=== PATIENT | female | born 1995 | race Caucasian/White ===

== ENCOUNTER 2016-06-10 14:03 | Emergency (ER) | payer OTHER ==
[2016-06-10 14:30] VITALS: TEMP 98.7; O2SAT 96
--- NOTE | 2016-06-10 16:13 | ED.PDOC ---
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 Additionally, she is having swelling in her feet. She did walk around quite a bit yesterday. She has had a vaginal discharge and a little cramping while she was walking yesterday. She denies any Nausea/vomiting. No dysuria. She has been taking her Synthroid with her vitamins and is worried that it is causing problems. Timing/Duration: 4-6 hours Severity: mild Improving Factors: nothing Worsening Factors: nothing Associated Symptoms: denies symptoms Allergies/Adverse Reactions: Allergies NO KNOWN ALLERGY Allergy (Verified 06/10/16 14:30) Home Medications: Ambulatory Orders Vit W/ Ferrous Fumara [] 1 tab PO DAILY 06/10/16 Thyroid 1 each PO DAILY 06/10/16 Review of Systems - Review of Systems Constitutional: States: no symptoms reported EENTM: States: no symptoms reported Respiratory: States: no symptoms reported Cardiology: States: no symptoms reported Gastrointestinal/Abdominal: States: no symptoms reported Genitourinary: States: discharge Musculoskeletal: States: no symptoms reported Skin: States: no symptoms reported Neurological: States: no symptoms reported Endocrine: States: no symptoms reported Hematologic/Lymphatic: States: no symptoms reported All other Systems: Reviewed and Negative Past Medical History (General) - Patient Medical History Hx Stroke: No Hx Congestive Heart Failure: No Hx Thyroid Disease: Yes Hx Diabetes: No Hx Cancer: No Hx Hepatitis C: No Hx MRSA: No Surgical History: no surgical history - Vaccination History Hx Tetanus, Diphtheria Vaccination: No Hx Influenza Vaccination: No Hx Pneumococcal Vaccination: No - Social History Hx Tobacco Use: No Hx Alcohol Use: No Hx Substance Use: No Hx Substance Use Treatment: No Hx Depression: No - Activities of Daily Living Hospice Agency (if applicable):: None - Female History Patient is a Female of Child Bearing Age (10 -59 yrs old): Yes Hx Last Menstrual Period: 02/03/16 Patient : Yes Family Medical History - Family History Mother Family History: No Known Living Status: Still Living Physical Exam - Physical Exam General Appearance: Alert, Comfortable, No apparent distress Eye Exam: bilateral normal Ears, Nose, Throat: hearing grossly normal, normal ENT inspection Neck: supple Respiratory: lungs clear, normal breath sounds, no respiratory distress Cardiovascular/Chest: regular rate, rhythm, no edema, no gallop, no murmur Gastrointestinal/Abdominal: normal bowel sounds, non tender, soft, no organomegaly Extremity: normal range of motion, non-tender, normal inspection, no pedal edema , no calf tenderness Neurologic: alert, normal mood/affect, oriented x 3 Skin Exam: normal color, warm/dry Comments: Gravid, FHT 150 bpm Progress - Progress Progress: 06/10/16 16:18 Patient declined pelvic exam as she is going to see her OB on 06/13/2016. - Results/Orders Results/Orders: 06/10/16 14:05 Temperature 98.7 F Pulse Rate [ 87 pulse ox] Respiratory 20 Rate Blood Pressure 116/71 [Left Arm] O2 Sat by Pulse 96 Oximetry Laboratory Results WBC 10.9 K/mm3 (4.8-10.8) H 06/10/16 15:35 RBC 3.73 M/mm3 (4.20-5.40) L 06/10/16 15:35 Hgb 11.7 gm/dL (12.0-16.0) L 06/10/16 15:35 Hct 33.1 % (36.0-47.0) L 06/10/16 15:35 MCV 88.9 fl (81.0-99.0) 06/10/16 15:35 MCH 31.3 pg (27.0-31.0) H 06/10/16 15:35 MCHC 35.3 g/dL (33.0-37.0) 06/10/16 15:35 RDW 12.9 % (11.5-14.5) 06/10/16 15:35 Plt Count 295 K/mm3 (130-400) 06/10/16 15:35 MPV 7.2 fl (7.40-10.4) L 06/10/16 15:35 Absolute Neuts (auto) 7.70 K/uL (1.8-6.8) H 06/10/16 15:35 Absolute Lymphs (auto) 1.50 K/uL (1.0-3.4) 06/10/16 15:35 Absolute Monos (auto) 1.20 K/uL (0.2-0.8) H 06/10/16 15:35 Absolute Eos (auto) 0.40 K/uL (0.0-0.4) 06/10/16 15:35 Absolute Basos (auto) 0.10 K/uL (0.0-0.1) 06/10/16 15:35 Neutrophils % 70.8 % (42.0-78.0) 06/10/16 15:35 Lymphocytes % 13.7 % (20.0-50.0) L 06/10/16 15:35 Monocytes % 11.0 % (2.0-9.0) H 06/10/16 15:35 Eosinophils % 4.0 % (1.0-5.0) 06/10/16 15:35 Basophils % 0.5 % (0.0-2.0) 06/10/16 15:35 Sodium 137 mmol/L (135-145) 06/10/16 15:35 Potassium 3.7 mmol/L (3.6-5.0) 06/10/16 15:35 Chloride 109 mmol/L (101-111) 06/10/16 15:35 Carbon Dioxide 23 mmol/L (21-31) 06/10/16 15:35 Anion Gap 8.7 (12-18) L 06/10/16 15:35 BUN 12 mg/dL (7-18) 06/10/16 15:35 Creatinine 0.45 mg/dL (0.6-1.3) L 06/10/16 15:35 BUN/Creatinine Ratio 26.7 (10-20) H 06/10/16 15:35 Random Glucose 80 mg/dL (70-105) 06/10/16 15:35 Serum Osmolality 272.6 mOsm/L (275-295) L 06/10/16 15:35 Calcium 9.0 mg/dL (8.4-10.2) 06/10/16 15:35 Total Bilirubin < 0.2 mg/dL (0.2-1.0) L 06/10/16 15:35 AST 24 IU/L (10-42) 06/10/16 15:35 ALT 27 IU/L (10-60) 06/10/16 15:35 Alkaline Phosphatase 57 IU/L (42-121) 06/10/16 15:35 Serum Total Protein 6.5 gm/dL (6.4-8.2) 06/10/16 15:35 Albumin 3.1 g/dl (3.2-5.5) L 06/10/16 15:35 Globulin 3.4 gm/dL (2.3-3.5) 06/10/16 15:35 Albumin/Globulin Ratio 0.9 (1.1-1.9) L 06/10/16 15:35 Urine Color Yellow (Yellow) 06/10/16 14:47 Urine Appearance Cloudy (Clear) 06/10/16 14:47 Urine pH 7.0 (4.5-7.8) 06/10/16 14:47 Ur Specific [place] 1.025 (1.005-1.030) 06/10/16 14:47 Urine Protein Negative mg/dL 06/10/16 14:47 Urine Glucose (UA) Negative mg/dL (Negative) 06/10/16 14:47 Urine Ketones Negative mg/dL (NEGATIVE) 06/10/16 14:47 Urine Blood Negative (Negative) 06/10/16 14:47 Urine Nitrite Negative 06/10/16 14:47 Urine Bilirubin Negative (NEGATIVE) 06/10/16 14:47 Urine Urobilinogen 0.2 mg/dL (0.2-1.0) 06/10/16 14:47 Ur Leukocyte Esterase Negative (Negative) 06/10/16 14:47 Urine RBC 0 /hpf 06/10/16 14:47 Urine WBC 0 /hpf 06/10/16 14:47 Ur Epithelial Cells 5-10 /hpf 06/10/16 14:47 Amorphous Sediment 3+ 06/10/16 14:47 Urine Bacteria 0 06/10/16 14:47 Departure - Departure Clinical Impression: , Worried well Time of Disposition: 16:19 Disposition: Discharge to Home or Self Care Condition: Excellent Departure Forms: ED Discharge - Pt. Copy, Patient Portal Self Enrollment Diet: resume usual diet Home Medications: Ambulatory Orders Vit W/ Ferrous Fumara [] 1 tab PO DAILY 06/10/16 Thyroid 1 each PO DAILY 06/10/16
[2016-06-10 16:45] VITALS: BP 119/61
== END 2016-06-10 16:34 | disposition home or self-care (01) ==
LOC: ER 14:03
DX: O99.282 Endocrine, nutritional and metabolic diseases complicating pregnancy, second trimester (principal); E07.9 Disorder of thyroid, unspecified; R60.0 Localized edema; Z3A.22 22 weeks gestation of pregnancy; Z79.899 Other long term (current) drug therapy

== ENCOUNTER 2017-01-23 12:11 | Emergency (ER) | payer SELFPAY | END 2017-01-23 12:30 | disposition left against medical advice (07) | LOC: ER 12:11 | DX: Z53.21 Procedure and treatment not carried out due to patient leaving prior to being seen by health care provider (principal) ==

== ENCOUNTER 2017-08-01 13:20 | Emergency (ER) | payer SELFPAY ==
[2017-08-01 13:32] VITALS: BP 112/78; TEMP 98; O2SAT 95
[2017-08-01] MEDS ORDERED: FLUCONAZOLE 100 MG TAB PO ONE (14:10)
--- NOTE | 2017-08-01 14:32 | ED.PDOC ---
History of Present Illness - General Chief Complaint: Problem Stated Complaint: vaginal burning,itching Time Seen by Provider: 08/01/17 13:23 Source: patient Exam Limitations: no limitations - History of Present Illness Initial Comments: The patient's 19-year-old female presenting to the emergency room secondary to mild dysuria and vaginal itching present for the last 3 days. No history of STDs or frequent yeast infections. No real pelvic pain. No fever. No significant vaginal discharge according to her. Severity: mild Improving Factors: nothing Worsening Factors: nothing Associated Symptoms: denies symptoms Allergies/Adverse Reactions: Allergies NO KNOWN ALLERGY Allergy (Verified 06/10/16 14:30) Home Medications: Ambulatory Orders Fluconazole 100 mg PO DAILY #2 tab 08/01/17 Trazodone HCl 25 mg PO BEDTIME 08/01/17 Review of Systems - Review of Systems Constitutional: States: no symptoms reported EENTM: States: no symptoms reported Respiratory: States: no symptoms reported Cardiology: States: no symptoms reported Gastrointestinal/Abdominal: States: no symptoms reported Genitourinary: States: see HPI Musculoskeletal: States: no symptoms reported Skin: States: no symptoms reported Neurological: States: no symptoms reported Endocrine: States: no symptoms reported All other Systems: No Change from Baseline Past Medical History (General) - Patient Medical History Hx Stroke: No Hx Congestive Heart Failure: No Hx Thyroid Disease: Yes Hx Diabetes: No Hx Cancer: No Hx Hepatitis C: No Hx MRSA: No Surgical History: no surgical history - Vaccination History Hx Tetanus, Diphtheria Vaccination: No Hx Influenza Vaccination: No Hx Pneumococcal Vaccination: No - Social History Hx Tobacco Use: Yes Hx Alcohol Use: No Hx Substance Use: No Hx Substance Use Treatment: No Hx Depression: No - Female History Patient is a Female of Child Bearing Age (10 -59 yrs old): Yes Hx Last Menstrual Period: 02/03/16 Patient : Yes Family Medical History - Family History Mother Family History: No Known Living Status: Still Living Physical Exam - Physical Exam General Appearance: Alert, Comfortable, No apparent distress Eye Exam: bilateral normal Ears, Nose, Throat: hearing grossly normal, normal pharynx Neck: non-tender, full range of motion, supple Respiratory: lungs clear, normal breath sounds, no respiratory distress, no accessory muscle use Cardiovascular/Chest: normal peripheral pulses, regular rate, rhythm, no edema Peripheral Pulses: radial,right: 2+, radial,left: 2+ Gastrointestinal/Abdominal: non tender, soft Rectal Exam: deferred Back Exam: no CVA tenderness, no vertebral tenderness Extremity: non-tender, normal inspection, no pedal edema, normal capillary refill 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 The patient does appear to have a yeast infection. The patient will be treated with Diflucan for 3 days the first dose was given here. If patient continues to have symptoms in spite of treatment of this then she should follow up with the public health department or family planning clinic for a full spectrum STD testing. She does not appear to have a urinary tract infection otherwise at this time. She does need tokeep herself well hydrated. ER warnings were given. Departure - Departure Clinical Impression: Candidal vaginitis Disposition: Discharge to Home or Self Care Condition: Fair Departure Forms: ED Discharge - Pt. Copy, Patient Portal Self Enrollment Instructions: DI for Vaginal Yeast Infection Diet: regular diet Activity: increase activity as tolerated Prescriptions: Fluconazole 100 mg PO DAILY #2 tab Home Medications: Ambulatory Orders Fluconazole 100 mg PO DAILY #2 tab 08/01/17 Trazodone HCl 25 mg PO BEDTIME 08/01/17 Additional Instructions: the patient's 21-year-old female presenting with mild dysuria and vaginal itching. The patient does appear to have a yeast infection. The patient will be treated with Diflucan for 3 days the first dose was given here. If patient continues to have symptoms in spite of treatment of this then she should follow up with the public health department or family planning clinic for a full spectrum STD testing. She does not appear to have a urinary tract infection otherwise at this time. She does need tokeep herself well hydrated. ER warnings were given.
== END 2017-08-01 14:41 | disposition home or self-care (01) ==
LOC: ER 13:20
DX: B37.3 Candidiasis of vulva and vagina (principal); Z87.891 Personal history of nicotine dependence

== ENCOUNTER 2019-03-19 18:24 | Emergency (ER) | payer MEDICAID ==
[2019-03-19 18:44] VITALS: TEMP 99.3
[2019-03-19] MEDS ORDERED: ALBUTEROL SULFATE 2.5 MG/3 ML VIAL NEB ONE (19:01)
[2019-03-19] MEDS ORDERED: ACETAMINOPHEN 500 MG TAB PO ONE (19:02)
--- NOTE | 2019-03-19 19:04 | ED.PDOC ---
History of Present Illness - General Chief Complaint: Respiratory Problem Stated Complaint: Shortness of breath Time Seen by Provider: 03/19/19 19:00 Source: patient - History of Present Illness Comments: Patient is a 23 yo F currently 2 month presenting for evaluation of worsening cough since December. She states that she is starting to cough up green sputum over the past two days. She has noticed more shortness of breath since she has had the productive cough. Patient notes that she has had low grade fevers. Does have recent sick contacts with her son. Endorses nasal/sinus congestion with posterior nasal drainage. Denies any recent travel, recent surgeries, leg swelling, or leg pain. Notes that she tried Zyrtec two months ago when the cough first started without much improvement. Denies smoking. Denies abdominal pain, vaginal bleeding, or vaginal discharge. No previous hx of asthma. Denies any other complaints. Cough Quality/Degree: productive cough Allergies/Adverse Reactions: Allergies Penicillins Allergy (Verified 03/19/19 18:39) Unknown Home Medications: Ambulatory Orders RX: Albuterol Inhaler [Ventolin Hfa Inhaler] 1 puff INH Q4H PRN #1 inh 03/19/19 RX: Azithromycin Tab [Zithromax Tab] 250 mg PO DAILY #6 tab 03/19/19 Review of Systems - Review of Systems Constitutional: States: fever. Denies: chills EENTM: States: nose congestion Respiratory: States: cough, short of breath Cardiology: Denies: edema, palpitations, syncope Gastrointestinal/Abdominal: Denies: abdominal pain, diarrhea, nausea, vomiting Genitourinary: Denies: discharge Musculoskeletal: Denies: back pain Neurological: Denies: headache Hematologic/Lymphatic: Denies: blood clots Past Medical History (General) - Patient Medical History Hx Stroke: No Hx Congestive Heart Failure: No Hx Thyroid Disease: No Hx Diabetes: No Hx Cancer: No Hx Hepatitis C: No Hx MRSA: No - Vaccination History Hx Tetanus, Diphtheria Vaccination: No Hx Influenza Vaccination: No Hx Pneumococcal Vaccination: No - Social History Hx Tobacco Use: Yes Hx Alcohol Use: No Hx Substance Use: No Hx Substance Use Treatment: No Hx Depression: No - Female History Patient is a Female of Child Bearing Age (10 -59 yrs old): Yes Hx Last Menstrual Period: 02/03/16 Patient : Yes - estimated due date 10/16/19 Family Medical History - Family History Mother Family History: No Known Living Status: Still Living Physical Exam - Physical Exam General Appearance: Alert, Anxious, Other - Non-toxic ENT Exam: hearing grossly normal, nasal drainage Neck: non-tender, full range of motion, supple, normal inspection, trachea midline Respiratory: no respiratory distress, no accessory muscle use, wheezing Cardiovascular/Chest: no edema, no gallop, no JVD, tachycardia Gastrointestinal/Abdominal: non tender, soft Extremity: normal inspection, no pedal edema, no calf tenderness Neurologic: alert, normal mood/affect, oriented x 3 Skin Exam: normal color Progress - Progress Progress: DDx: Bronchitis, Asthma Exacerbation, Pneumonia, Viral URI Patient presented for evaluation of SOB. She had no focal rales or rhonchi to suggest underlying pneumonia. Chronicity of symptoms do not suggest PE. Symptoms are more consistent with URI, likely viral vs. secondary to bronchitis. Given , will treat with albuterol inhaler and azithromycin. Patient was given one neb treatment with drastic improvement in symptoms. Plan was for discharge home with plans for outpatient follow-up with PCP. 03/19/19 19:07 Neb and Tylenol ordered. Will reassess after treatment. 03/19/19 19:56 Patient feeling better after Albuterol neb and tylenol. Repeat exam significant for decreased wheezing. Will plan for discharge with treatment for bronchitis. Will treat with Azithromycin and Albuterol inhaler. Will follow-up with PCP for re-evaluation. Departure - Departure Clinical Impression: Bronchitis, Upper respiratory infection Time of Disposition: 19:57 Disposition: Discharge to Home or Self Care Departure Forms: ED Discharge - Pt. Copy, Patient Portal Self Enrollment Instructions: Acute Bronchitis Prescriptions: RX: Albuterol Inhaler [Ventolin Hfa Inhaler] 1 puff INH Q4H PRN #1 inh PRN Reason: Shortness Of Breath/Wheezing RX: Azithromycin Tab [Zithromax Tab] 250 mg PO DAILY #6 tab Home Medications: Ambulatory Orders RX: Albuterol Inhaler [Ventolin Hfa Inhaler] 1 puff INH Q4H PRN #1 inh 03/19/19 RX: Azithromycin Tab [Zithromax Tab] 250 mg PO DAILY #6 tab 03/19/19 Comments: Leon Wells D.O. [facility] #[id number]
[2019-03-19 20:11] VITALS: BP 108/57; O2SAT 99
== END 2019-03-19 20:19 | disposition home or self-care (01) ==
LOC: ER 18:24
DX: O98.811 Other maternal infectious and parasitic diseases complicating pregnancy, first trimester (principal); J06.9 Acute upper respiratory infection, unspecified; O99.511 Diseases of the respiratory system complicating pregnancy, first trimester; J40 Bronchitis, not specified as acute or chronic; Z87.891 Personal history of nicotine dependence; Z88.0 Allergy status to penicillin; Z3A.00 Weeks of gestation of pregnancy not specified
CPT/HCPCS: 94640; J7611

== ENCOUNTER 2019-10-19 10:51 | Emergency (ER) | payer OTHER ==
[2019-10-19] MEDS ORDERED: ONDANSETRON INJ 4 MG/2 ML VIAL IV ONE (10:58)
[2019-10-19] MEDS ORDERED: SODIUM CHLORIDE 0.9% 1000ML 1,000 ML IVS PRN (10:58)
[2019-10-19] MEDS ORDERED: MORPHINE SULFATE INJ 10 MG/ML VIAL IV ONE (10:58)
--- NOTE | 2019-10-19 11:07 | ED.PDOC ---
History of Present Illness - General Time Seen by Provider: 10/19/19 10:57 - History of Present Illness Initial Comments: 25 5 days PP comes in with acute abdominal pain. Patient had normal vaginal delivery in [place] on 10/14/19, was only complicated by gestation diabetes. she was discharged home in stable condition. last night she developed some cramping but it went away. 30 minutes prior to arrival she developed sharp LLQ pain. Constant. no vaginal discharge. no dysuria, no fever. Patients ob is Dr. Medina Allergies/Adverse Reactions: Allergies Penicillins Allergy (Verified 03/19/19 18:39) Unknown Home Medications: Ambulatory Orders Ferrous Fumarate-Iron Polysacc [Integra F 125-1 mg] 1 cap PO DAILY 10/19/19 Ibuprofen 600 mg PO Q4H 10/19/19 Review of Systems - Review of Systems Constitutional: Denies: chills, diaphoresis, fever, malaise EENTM: Denies: blurred vision, ear pain, nose pain, throat pain, mouth pain Respiratory: Denies: cough, short of breath, stridor, wheezing Cardiology: Denies: chest pain, edema, palpitations, syncope Gastrointestinal/Abdominal: States: abdominal pain, nausea. Denies: constipation, diarrhea, vomiting Genitourinary: States: see HPI, pain. Denies: discharge, dysuria, frequency, hematuria Musculoskeletal: Denies: back pain, joint pain, joint swelling, muscle stiffness, neck pain Skin: Denies: change in color, change in hair/nails, dryness, lesions Neurological: Denies: anxiety, headache, numbness, paresthesia, seizure, tingling, tremors, weakness Endocrine: Denies: increased hunger, increased thirst, unexplained weight gain, unexplained weight loss Hematologic/Lymphatic: Denies: anemia, blood clots, easy bleeding, easy bruising Past Medical History (General) - Patient Medical History Hx Stroke: No Hx Congestive Heart Failure: No Hx Thyroid Disease: No Hx Diabetes: No Hx Cancer: No Hx Hepatitis C: No Hx MRSA: No Surgical History: no surgical history - Vaccination History Hx Tetanus, Diphtheria Vaccination: No Hx Influenza Vaccination: No Hx Pneumococcal Vaccination: No - Social History Hx Tobacco Use: Yes Hx Alcohol Use: No Hx Substance Use: No Hx Substance Use Treatment: No Hx Depression: No - Female History Patient is a Female of Child Bearing Age (10 -59 yrs old): Yes - post- 10/14/19 Hx Last Menstrual Period: 02/03/16 Patient : Yes - estimated due date 10/16/19 Family Medical History - Family History Mother Family History: No Known Living Status: Still Living Physical Exam - Physical Exam General Appearance: Alert, Well Developed, Well Groomed, Well Hydrated, Well Nourished, Other - in pain Eyes, Ears, Nose, Throat Exam: PERRL/EOMI, normal ENT inspection Neck: non-tender, full range of motion, supple, normal inspection Cardiovascular/Respiratory: regular rate, rhythm, no M/R/G, normal peripheral pulses, no JVD, normal breath sounds, no respiratory distress Gastrointestinal/Abdominal: normal bowel sounds, soft, no organomegaly, no pulsatile mass, guarding, tenderness Rectal Exam: deferred Pelvic Exam: external exam normal, speculum exam normal - normal post exam, bimanual exam normal, no cerv. 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 Bedside abdominal US shows uterus intact, will possible fibroid/mass like structure on left uterus. patient has not been told she has fibroid in the past. Patient declines morphine or zofran since she is breast feeding. Will give IVF and CT scan of abdomen/pelvis. Blood work grossly unremarkable. blood in urine secondary to vaginal bleeding. CT scan shows: 1. Asymmetric heterogenous enhancement in the superior pole of the right kidney. Correlate clinically for pyelonephritis. 2. Uterus is enlarged with subtle hypodensity in its anterior wall suggestive of large fibroid. patient aware of findings. Patient has not flank pain, fever or dysuria. Pain has improved. repeat abd exams shows no tenderness or guarding. I recommend patient be transferred for pelvic ultrasound as I am concerned about ovarian torsion. Patient declined transfer. She understands the risk of ovarian torsion, and the importance of getting evaluated. I reviewed in detail the risk of leaving without getting this evaluated. She acknowledge understanding. would like patient to get transferred, but patient declines. Patient left AMA. Strict return precautions given. Ruthann Mack DO #[id number] 10/19/19 13:57 Departure - Departure Clinical Impression: Pelvic pain Time of Disposition: 13:17 Disposition: Left Against Medical Advice Departure Forms: ED Discharge - Pt. Copy, Patient Portal Self Enrollment Instructions: Uterine Fibroids, Ovarian Torsion Referrals: Rick Medina MD [Primary Care Provider] - 1-2 Days Home Medications: Ambulatory Orders Ferrous Fumarate-Iron Polysacc [Integra F 125-1 mg] 1 cap PO DAILY 10/19/19 Ibuprofen 600 mg PO Q4H 10/19/19
[2019-10-19 11:09] VITALS: TEMP 98.2
--- NOTE | 2019-10-19 12:29 | CT ---
EXAM DESCRIPTION: CT Abdomen/Pelvis w/Contrast CLINICAL HISTORY: 24 years Female Peritoneal signs TECHNIQUE: Contrast-enhanced CT of the abdomen and pelvis with coronal and sagittal reformats. All CT scans at this facility use dose modulation, iterative reconstruction, and/or weight based dosing when appropriate to reduce radiation dose to as low as reasonably achievable. COMPARISON: None. FINDINGS: Lower chest: Lung bases are clear. Abdomen: Liver: No focal lesion.. Gallbladder: No calcified stone. Pancreas: Within normal limits Spleen: Within normal limits Kidney: Asymmetric heterogenous enhancement in the superior pole of the right kidney. No stone or hydronephrosis. Adrenal glands: Within normal limits Vascular structures: Unremarkable. Pelvis: Bowel: No significant distention. Appendix: Normal. Peritoneum: No free fluid or free air. Lymph Nodes: No lymphadenopathy. Reproductive: Uterus is enlarged with subtle hypodensity in its anterior wall. Urinary bladder: Unremarkable. Osseous structures: Unremarkable. Soft tissues: Unremarkable.. IMPRESSION: 1. Asymmetric heterogenous enhancement in the superior pole of the right kidney. Correlate clinically for pyelonephritis. 2. Uterus is enlarged with subtle hypodensity in its anterior wall suggestive of large fibroid. Recommend pelvic sonogram for further evaluation. Electronically signed by: Modesto Funk MD 10/19/2019 12:27 PM CDT
[2019-10-19 13:06] VITALS: BP 133/76; O2SAT 96
== END 2019-10-19 13:19 | disposition left against medical advice (07) ==
LOC: ER 10:51
DX: R10.2 Pelvic and perineal pain (principal); R93.89 Abnormal findings on diagnostic imaging of other specified body structures; R11.0 Nausea; Z53.29 Procedure and treatment not carried out because of patient's decision for other reasons; Z87.891 Personal history of nicotine dependence; Z88.0 Allergy status to penicillin
CPT/HCPCS: 36415; 74177; 80053; 81001; 83690; 85025; 85610; 85730; 87040; 87086; J7030